=== PATIENT | male | born 2000 | race Caucasian/White ===

== ENCOUNTER 2019-04-15 17:58 | Emergency (ER) | payer BC ==
[2019-04-15] MEDS ORDERED: NS(*) 0.9% 1000 ML BAG 1,000 ML IV ONE (18:05)
[2019-04-15] MEDS ORDERED: ONDANSETRON 4 MG/2 ML VIAL IVP ONE (18:05)
--- NOTE | 2019-04-15 18:05 | ER Report ---
History and Physical Time Seen By MD: 17:58 HPI/ROS CHIEF COMPLAINT: Abdominal pain, syncope HISTORY OF PRESENT ILLNESS: 19-year-old male brought in by EMS complaining of near-syncope. He's been sick for 2-3 days with abdominal pain. He's had some vomiting before but it resolved. He just has severe nausea and near syncopal sensation. He thinks he might have food poisoning. He's eaten out at several restaurants over the last several days. He denies diarrhea, fever, chills or dysuria. REVIEW OF SYSTEMS: Respiratory: No cough, no dyspnea. Cardiovascular: No chest pain, no palpitations. Gastrointestinal: As above Musculoskeletal: No back pain. Allergies: Coded Allergies: No Known Drug Allergies (Unverified , 04/15/19) Home Meds Active Scripts Ondansetron 4 Mg Odt (ONDANSETRON 4 MG ODT) 4 Mg Tab.rapdis, 4 MG PO Q6H PRN for NAUSEA/VOMITING, #12 TAB Prov:SAE ROQUE DO 04/15/19 Reviewed Nurses Notes: Yes Old Medical Records Reviewed: Yes Constitutional Vital Sign - Last 24 Hours 04/15/19 04/15/19 04/15/19 04/15/19 17:58 18:00 18:03 18:12 Temp 98.0 Pulse 106 101 Resp 16 B/P (MAP) 143/82 (102) 143/82 132/89 (103) Pulse Ox 98 99 O2 Delivery Room Air 04/15/19 04/15/19 04/15/19 04/15/19 18:13 18:28 18:30 18:43 Pulse 107 ??? 69 B/P (MAP) 123/69 (87) Pulse Ox 98 96 97 04/15/19 04/15/19 18:58 19:00 Pulse 69 B/P (MAP) 121/71 (88) Intake and Output 04/15/19 04/15/19 04/16/19 15:03 23:03 07:03 Intake Total 1000 ml Balance 1000 ml Physical Exam Vital signs stable, afebrile, pulse ox normal General Appearance: The patient is alert, has no immediate need for airway protection and no current signs of toxicity. Skin warm, dry, pink HEENT: Pupils equal and round no injection. Oropharynx without redness or exudate, mucous. Membranes are moist Respiratory: Chest is non tender, lungs are clear to auscultation. Cardiac: regular rate and rhythm Gastrointestinal: [Abdomen is soft with mild epigastric tenderness, no masses, bowel sounds normal.] Musculoskeletal: Neck: Neck is supple and non tender. No lymphadenopathy Extremities have full range of motion and are non tender. Skin: No rashes or lesions. DIFFERENTIAL DIAGNOSIS: After history and physical exam differential diagnosis was considered for abdominal pain including but not limited to appendicitis, cholecystitis, gastritis and urinary tract infection. Additionally,syncope including but not limited to vasovagal syncope, arrhythmia, dehydration, and blood loss. Medical Decision Making Data Points Result Diagram: 04/15/19 1748 04/15/19 1748 Laboratory Hematology Test 04/15/19 17:48 White Blood Count 6.2 k/uL (4.5-11.0) Red Blood Count 5.70 M/uL (4.00-5.60) H Hemoglobin 17.7 g/dL (14.0-18.0) Hematocrit 50.2 % (42.0-52.0) Mean Corpuscular Volume 88.1 fL (80.0-96.0) Mean Corpuscular Hemoglobin 31.0 pg (26.0-33.0) Mean Corpuscular Hemoglobin Concent 35.2 g/dL (32.0-36.0) Red Cell Distribution Width 12.4 % (11.5-14.5) Platelet Count 283 K/uL (150-450) Mean Platelet Volume 7.3 fL (7.2-11.1) Neutrophils (%) (Auto) 52.4 % (39.4-72.5) Lymphocytes (%) (Auto) 32.9 % (17.6-49.6) Monocytes (%) (Auto) 13.7 % (4.1-12.4) H Eosinophils (%) (Auto) 0.5 % (0.4-6.7) Basophils (%) (Auto) 0.5 % (0.3-1.4) Nucleated RBC Relative Count (auto) 0.5 /100WBC Neutrophils # (Auto) 3.2 K/uL (2.0-7.4) Lymphocytes # (Auto) 2.0 K/uL (1.3-3.6) Monocytes # (Auto) 0.8 K/uL (0.3-1.0) Eosinophils # (Auto) 0.0 K/uL (0.0-0.5) Basophils # (Auto) 0.0 K/uL (0.0-0.1) Nucleated RBC Absolute Count (auto) 0.03 K/uL Chemistry Test 04/15/19 17:48 Sodium Level 139 mmol/L (137-145) Potassium Level 3.2 mmol/L (3.5-5.0) Chloride Level 102 mmol/L (98-107) Carbon Dioxide Level 22 mmol/L (22-30) Blood Urea Nitrogen 12 mg/dl (9-21) Creatinine 0.90 mg/dl (0.66-1.25) Glomerular Filtration Rate Calc > 60.0 Random Glucose 94 mg/dl (75-110) Calcium Level 10.1 mg/dl (8.4-10.2) Total Bilirubin 0.8 mg/dl (0.2-1.3) Aspartate Amino Transf (AST/SGOT) 26 U/L (0-35) Alanine Aminotransferase (ALT/SGPT) 33 U/L (0-56) Alkaline Phosphatase 54 U/L (0-126) Total Protein 8.5 g/dl (6.3-8.2) Albumin 5.0 g/dl (3.5-5.0) Amylase Level 70 U/L (0-110) Lipase 41 U/L (23-300) Coagulation Test 04/15/19 17:48 Prothrombin Time 13.4 seconds (12.0-14.4) Prothromb Time International Ratio 1.02 Activated Partial Thromboplast Time 35 seconds (23-35) Urinalysis Test 04/15/19 18:13 Urine Color Yellow Urine Clarity Clear Urine pH 7.0 pH (4.8-9.5) Urine Specific [place] 1.014 Urine Protein Negative mg/dL (NEGATIVE) Urine Glucose (UA) Negative mg/dL (NEGATIVE) Urine Ketones Trace mg/dL (NEGATIVE) Urine Blood Negative (NEGATIVE) Urine Nitrite Negative (NEGATIVE) Urine Bilirubin Negative (NEGATIVE) Urine Urobilinogen Negative mg/dL (0.2-1.9) Urine Leukocyte Esterase Negative (NEGATIVE) Urine RBC <1 /HPF (0-2/HPF) Urine WBC <1 /HPF (0-5/HPF) Urine Squamous Epithelial Cells None /LPF (</=FEW) Urine Bacteria Few /HPF (NONE-FEW) Urine Mucus None /HPF (NONE-FEW) ED Course/Re-evaluation Clinical Indication for ER IV: Hydration, IV Access ED Course Patient was admitted to an examination room. H&P was done. The differential diagnoses was considered. On clinical examination. Patient has a benign nonsurgical abdomen. It is primarily epigastric pain. He's been feeling syncopal with severe nausea. He's had very little vomiting. He describes eating out at several restaurants over the last few days. He thinks he might have food poisoning. He denies URI, sore throat cough fever or chills. Patient's treated with IV fluid hydration. Diagnostic studies are sent off. His studies are unremarkable. Patient tolerates by mouth challenge of apple juice. He'll be discharged home on Zofran, ibuprofen and Tylenol. He is advised a clear liquid diet for 24-48 hours and advance to Isidoro diet. Decision to Disposition Date: Apr 15, 2019 Decision to Disposition Time: 19:10 Depart Departure Latest Vital Signs Vital Signs Date Time Temp Pulse Resp B/P (MAP) Pulse Ox O2 Delivery O2 Flow Rate FiO2 04/15/19 19:00 121/71 (88) 04/15/19 18:58 69 04/15/19 18:43 97 04/15/19 18:03 98.0 16 Room Air Impression: Primary Impression: Nausea without vomiting Additional Impressions: Abdominal pain Near syncope Condition: Improved Disposition: HOME OR SELF-CARE New Scripts Ondansetron 4 Mg Odt (ONDANSETRON 4 MG ODT) 4 Mg Tab.rapdis 4 MG PO Q6H PRN for NAUSEA/VOMITING, #12 TAB Prov: SAE ROQUE DO 04/15/19 Patient Instructions: Clear Liquid Diet (ED), Food Poisoning (ED) Additional Instructions: Take omeprazole 20 mg [id number] once daily for 2 weeks to reduce stomach acid and heal your stomach lining Avoid ibuprofen for one week, then take cautiously only with food and in moderate doses Use Tylenol for pain relief for the next week Follow clear liquid diet for 24-48 hours and advance to the brat diet, bananas, rice, applesauce and toast Avoid fatty food, greasy food vegetables and dairy for 72 hours Follow-up with your primary care provider if unimproved in 3-5 days Return to the ER for any worsening Problem Qualifiers Additional Impressions: Abdominal pain Abdominal location: generalized Qualified Codes: R10.84 - Generalized abdominal pain SAE ROQUE DO Apr 15, 2019 18:05
[2019-04-15] MEDS ORDERED: ONDANSETRON 4 MG/2 ML VIAL ONE (18:13)
[2019-04-15 18:19] LABS: PLATELET COUNT, AUTOMATED 283 K/uL (150-450)
[2019-04-15 18:30] LABS: INR 1.02
[2019-04-15 19:00] VITALS: BP 121/71
[2019-04-15] MEDS ORDERED: ONDA4TAB9 PO (19:15)
[2019-04-15] MEDS ORDERED: PANTOPRAZOLE SOD 40 MG TABEC PO ONE (19:20)
[2019-04-15] MEDS ORDERED: ONDANSETRON 4 MG ODT TH SL ONE (19:20)
== END 2019-04-15 19:32 | disposition home or self-care (01) ==
LOC: ER 18:06
DX: R11.0 Nausea (principal); R10.13 Epigastric pain; R55 Syncope and collapse
CPT/HCPCS: 81001; 82150; 83690; 85025; 85610; 85730; 96361; 96374; 99284; J2405; J7030; S0119; 82040; 82247; 82310; 82374; 82435; 82565; 82947; 84075; 84132; 84155; 84295; 84450; 84460; 84520

== ENCOUNTER → 2019-04-15 | Outpatient (CLI) | payer BC ==
[~2019-04-15] MED LIST: ONDA4TAB9 PO
== END ==
LOC: AMB 17:33
PROVIDERS: ATTEND Nurse Practitioner
DX: R11.2 Nausea with vomiting, unspecified (principal)
CPT/HCPCS: A0425; A0427